=== PATIENT | male | born 1950 | race Caucasian/White ===

== ENCOUNTER 2019-10-31 07:13 | Emergency (ER) | payer MEDICARE ==
[~2019-10-31] VITALS: Ht 185.4 cm; Wt 102.3 kg
[2019-10-31 07:51] LABS: BASOPHILS % (AUTO) 0.9 % (0-1); EOSINOPHILS # (AUTO) 0.1 X10'3 (0-0.9); EOSINOPHILS % (AUTO) 2.6 % (0-6); HEMATOCRIT 42.3 % (42.0-52.0); HEMOGLOBIN 14.2 g/dl (14.0-17.9); LYMPHOCYTES # (AUTO) 1.3 X10'3 (1.1-4.8); LYMPHOCYTES % (AUTO) 24.1 % (21-51); MEAN CORPUSCULAR HEMOGLOBIN 30.9 PG (27.0-31.0); MEAN CORPUSCULAR HGB CONC 33.6 g/dL (33.0-36.5); MEAN PLATELET VOLUME 8.2 FL (7.4-10.4); MONOCYTES # (AUTO) 0.5 X10'3 (0-0.9); MONOCYTES % (AUTO) 8.4 % (2-12); NEUTROPHILS # (AUTO) 3.4 X10'3 (1.8-7.7); PLATELET COUNT 128 X10'3 (140-440); RED BLOOD COUNT 4.59 X10'6 (4.70-6.10); WHITE BLOOD COUNT 5.4 X10'3 (4.5-11.0)
[2019-10-31] MEDS ORDERED: metoclopramide 5 mg/ml inj IV ONE (07:55)
[2019-10-31 08:06] LABS: ALANINE AMINOTRANSFERASE 59 U/L (12-78); ALBUMIN 3.5 G/DL (3.4-5.0); ALKALINE PHOSPHATASE 110 IU/L (46-116); ANION GAP 6 (8-16); ASPARTATE AMINO TRANSFERASE 23 U/L (10-37); BILIRUBIN,TOTAL 0.4 MG/DL (0.1-1.0); BLOOD UREA NITROGEN 16 MG/DL (7-18); BUN/CREATININE RATIO 13.7 (5.4-32.0); CALCIUM 8.9 MG/DL (8.5-10.1); CHLORIDE 108 MMOL/L (99-107); CREATININE 1.17 MG/DL (0.60-1.10); GLUCOSE 140 MG/DL (70-104); POTASSIUM 3.9 MMOL/L (3.5-5.1); SODIUM 141 MMOL/L (135-145); TOTAL CARBON DIOXIDE 27.1 MMOL/L (24-32); TOTAL PROTEIN 6.9 G/DL (6.4-8.2); eGFR 62 ML/MIN
[2019-10-31] MEDS ORDERED: AZIL1TAB2 (08:07)
[2019-10-31] MEDS ORDERED: AMLO5TAB10 (08:07)
[2019-10-31] MEDS ORDERED: ATOR40TA PO (08:07)
[2019-10-31] MEDS ORDERED: CARV-50 PO (08:07)
[2019-10-31] MEDS ORDERED: ASPI-1265 PO (08:07)
[2019-10-31] MEDS ORDERED: MECL-111 PO (09:07)
[2019-10-31 09:26] VITALS: BP 151/79
== END 2019-10-31 09:27 | disposition home or self-care (01) ==
LOC: ER 07:13
DX: H81.10 Benign paroxysmal vertigo, unspecified ear (principal); I25.10 Atherosclerotic heart disease of native coronary artery without angina pectoris; I25.2 Old myocardial infarction; Z95.5 Presence of coronary angioplasty implant and graft; Z98.890 Other specified postprocedural states; Z79.82 Long term (current) use of aspirin; Z79.899 Other long term (current) drug therapy
CPT/HCPCS: 36415; 70450; 71045; 80053; 84484; 85025; 93005; 96374; 99284; J2765

== ENCOUNTER 2021-02-05 09:50 | Emergency (ER) | payer MEDICARE ==
[~2021-02-05] VITALS: Ht 185.4 cm; Wt 97.5 kg
[~2021-02-05 09:50] MED LIST: AMLO5TAB10; ASPI-1265 PO; ATOR40TA PO; AZIL1TAB2; CARV-50 PO; MECL-159 PO
[2021-02-05 10:30] LABS: CLARITY,URINE CLOUDY (Clear); COLOR,URINE RED (Yellow); PH,URINE 6.5 (4.8-8.0)
[2021-02-05 10:31] LABS: UA COLLECTION TYPE CLN CATCH MIDSTREAM
[2021-02-05 10:32] LABS: BASOPHILS % (AUTO) 0.5 % (0-1); EOSINOPHILS # (AUTO) 0.1 X10'3 (0-0.9); EOSINOPHILS % (AUTO) 1.9 % (0-6); HEMATOCRIT 44.2 % (42.0-52.0); HEMOGLOBIN 14.5 g/dl (14.0-17.9); LYMPHOCYTES # (AUTO) 1.3 X10'3 (1.1-4.8); LYMPHOCYTES % (AUTO) 17.8 % (21-51); MEAN CORPUSCULAR HEMOGLOBIN 30.5 PG (27.0-31.0); MEAN CORPUSCULAR HGB CONC 32.9 g/dL (33.0-36.5); MEAN CORPUSCULAR VOLUME 92.8 FL (78-98); MEAN PLATELET VOLUME 8.1 FL (7.4-10.4); MONOCYTES # (AUTO) 0.5 X10'3 (0-0.9); MONOCYTES % (AUTO) 6.8 % (2-12); NEUTROPHILS # (AUTO) 5.5 X10'3 (1.8-7.7); PLATELET COUNT 170 X10'3 (140-440); RED BLOOD COUNT 4.76 X10'6 (4.70-6.10); RED CELL DISTRIBUTION WIDTH 13.9 % (11.5-14.5); WHITE BLOOD COUNT 7.5 X10'3 (4.5-11.0)
[2021-02-05 10:48] LABS: RBC,URINE TNTC /HPF (0-2); WBC,URINE 30-50 /HPF (0-4)
[2021-02-05 10:49] LABS: ALANINE AMINOTRANSFERASE 27 U/L (12-78); ALBUMIN 3.4 G/DL (3.4-5.0); ALBUMIN/GLOBULIN RATIO 0.9 (1.1-1.5); ALKALINE PHOSPHATASE 101 IU/L (46-116); ANION GAP 9 (8-16); ASPARTATE AMINO TRANSFERASE 18 U/L (10-37); BILIRUBIN,TOTAL 0.6 MG/DL (0.1-1.0); BLOOD UREA NITROGEN 17 MG/DL (7-18); BUN/CREATININE RATIO 15.2 (5.4-32.0); CALCIUM 9.1 MG/DL (8.5-10.1); CHLORIDE 103 MMOL/L (99-107); CREATININE 1.12 MG/DL (0.60-1.10); GLUCOSE 121 MG/DL (70-104); LIPASE 152 U/L (73-393); POTASSIUM 3.9 MMOL/L (3.5-5.1); SODIUM 141 MMOL/L (135-145); TOTAL CARBON DIOXIDE 29.1 MMOL/L (24-32); TOTAL PROTEIN 7.3 G/DL (6.4-8.2); eGFR 64 ML/MIN
[2021-02-05 10:50] LABS: MUCUS STRANDS FEW /LPF (Neg); SQUAMOUS EPITHELIAL CELL,UR NONE SEEN /LPF (FEW)
[2021-02-05 10:51] LABS: BACTERIA,URINE 1+ /HPF (Neg)
[2021-02-05] MEDS ORDERED: iohexol 300mg/ml 100ml inj. ONE (13:31)
[2021-02-05] MEDS ORDERED: iohexol 350MG/ML 100ml bottle IV ONE (13:31)
[2021-02-05] MEDS ORDERED: CefTRIAXone 2gm/D5W 50ml BAG 50 ML IV ONE (14:20)
[2021-02-05] MEDS ORDERED: CEPH-585 PO (14:32)
[2021-02-05 15:46] VITALS: BP 138/86
[2021-02-05 16:12] LABS: OCCULT BLOOD STOOL NEGATIVE (Neg)
== END 2021-02-05 15:52 | disposition home or self-care (01) ==
LOC: ER 09:50
DX: N39.0 Urinary tract infection, site not specified (principal); R31.0 Gross hematuria; K62.5 Hemorrhage of anus and rectum; I25.10 Atherosclerotic heart disease of native coronary artery without angina pectoris; I25.2 Old myocardial infarction; Z98.890 Other specified postprocedural states; Z79.82 Long term (current) use of aspirin; Z79.2 Long term (current) use of antibiotics; Z79.899 Other long term (current) drug therapy
CPT/HCPCS: 36415; 74178; 80053; 81001; 82272; 83690; 85025; 87088; 96365; 99285; J0696; Q9967

== ENCOUNTER 2025-09-16 06:51 | Emergency (ER) | payer MEDICARE, OTHER ==
[~2025-09-16] VITALS: Ht 185.4 cm; Wt 89.9 kg
[~2025-09-16 06:51] MED LIST changes: -MECL-159 PO; +MECL-302 PO
[2025-09-16 06:52] VITALS: TEMP 97.9
--- NOTE | 2025-09-16 07:02 | Physician Documentation ---
History of Present Illness General Stated Complaint: BACK PAIN Time Seen by MD: 06:56 Primary Medical Doctor: tristan History of Present Illness Initial Comments This is a 74-year-old gentleman with a known history of CABG, extensive cardiac history, presents for evaluation of what he describes as a back pain centered between his shoulder blades radiating down his right arm. No obvious trigger provocation. Unable to elaborate on any palliating or aggravating factors. When I asked him to describe this pain and whether it feels sharp, dull, achy, ripping, tearing" he states all of the above ankle. He attempted to treat this pain with cold, heat, ibuprofen with the only marginal relief. He has never experienced this pain in the past and it is different from his cardiac pain. He smokes, about half a pack a day. He drinks, he does not do drugs. Medication Reconciliation Allergies: Coded Allergies: No Known Allergies (Unverified , 09/16/25) Scheduled Amlodipine Besylate (Amlodipine Besylate), HS, (Reported) Aspirin (Aspirin), 1 TAB.CHEW PO DAILY, (Reported) Atorvastatin Calcium* (Lipitor*), 1 TABLET PO DAILY, (Reported) Azilsartan Med/Chlorthalidone (Edarbyclor 40-25 mg Tablet), QAM, (Reported) Carvedilol* (Coreg*), 3.125 MG PO BID, (Reported) Meclizine HCl (Meclizine HCl), 1 TAB PO Q6H Past Medical History Past Medical History: Coronary Artery Disease, Myocardial Infarction Past Surgical History: angioplasty, orthopedic surgeries Drug Use: none Lives with: Spouse Lives In: Home Review of Systems ROS 10 point review of systems was performed and unless noted above in HPI is negative for acute process/complaint. Physical Exam Physical Exam Physical Exam GENERAL: Awake, alert, oriented, GCS 15, no apparent distress, uncomfortable appearing, answers questions, follows commands appropriately. Examined in triage, accompanied by PAWELENT: Atraumatic, normocephalic, pupils equal, extraocular muscles intact, sclerae anicteric, mucus membranes moist, oropharynx is clear, no stridor. NECK: supple, full active range of motion, trachea midline, no thyromegaly, no lymphadenopathy, no JVD. CARDIOVASCULAR: regular rate/rhythm, no murmurs/gallops/rubs, Pulses are 2+ in all extremities and symmetric. Capillary refill less than 2 seconds. PULMONARY: Nonlabored, good air movement ,no respiratory distress, speaking in full sentences, clear to auscultation bilaterally, no wheezing, no ronchi, no rales, no accessory muscle use. GASTROINTESTINAL: Soft, non-tender, non-distended, normal active bowel sounds, no organomegaly, no pulsatile masses, no CVA tenderness. NEUROLOGIC: Lucid with normal mental status. Normal facial symmetry. Moves all extremities symmetrically and with purpose. No truncal ataxia. Speech is fluid without evidence of dysarthria or aphasia, no focal deficits appreciated. MUSCULOSKELETAL: There is full range of motion of all extremities. There is no joint pain or joint swelling or joint erythema. There is no muscle pain or tenderness or swelling. EXTREMITIES: warm, well-perfused, no cyanosis, no clubbing, no edema, no acute deformities. Skin: warm, dry, no rashes or lesions, no jaundice, no petechiae orpurpura. No ecchymosis. PSYCHIATRIC: Normal affect, normal insight, normal concentration. Focused exam: [] Progress Results/Orders Results/Orders Orders - ALEXANDRA DONOVAN DO Cta Chest Abdomen Pelvis (09/16/25 08:27) Chest,Single View (09/16/25 06:56) Monitor (09/16/25 06:56) Saline Lock (09/16/25 06:56) Completed Orders - ALEXANDRA DONOVAN DO Cta Chest Abdomen Pelvis (09/16/25 08:27) Electrocardiogram (09/16/25 06:56) Cbc/Diff (09/16/25 06:56) CK (09/16/25 06:56) D-Dimer (09/16/25 06:56) Lipase (09/16/25 06:56) LDH (09/16/25 06:56) Urinalysis, Cult If Indicated (09/16/25 06:56) Chest,Single View (09/16/25 06:56) PBNP (09/16/25 06:56) MG (09/16/25 06:56) CMP (09/16/25 06:56) Hs Troponin I W Calculations (09/16/25 06:56) Hs Troponin I W Calculations (09/16/25 08:56) Ondansetron Inj. (Zofran 4mg/2ml Vial) (09/16/25 07:00) Morphine 4mg/Ml Inj. (Morphine Inj.) (09/16/25 07:00) Morphine 2mg/Ml Inj. (Morphine Inj.) (09/16/25 07:10) Iohexol 350mg/Ml 100ml (Omnipaque 350mg/ (09/16/25 08:04) Medications Received in ER Medications (Trade) Dose Ordered Sig/Slade Route PRN Reason Start Time Stop Time Status Last Admin Dose Admin (Zofran 4mg/2ml vial) 4 mg ONCE ONCE IV 09/16/25 07:00 09/16/25 07:08 DC 09/16/25 07:22 4 MG (morphine inj.) 4 mg ONCE ONCE IV 09/16/25 07:10 09/16/25 07:11 DC 09/16/25 07:23 4 MG Vital Signs 09/16/25 09/16/25 09/16/25 09/16/25 06:52 07:15 07:23 07:47 Temp 97.9 Pulse 82 63 Resp 20 18 18 17 B/P (MAP) 138/88 147/86 (106) Pulse Ox 98 94 O2 Flow Rate 0 0 09/16/25 09/16/25 07:49 08:56 Pulse 61 Resp 17 12 B/P (MAP) 153/77 (102) Pulse Ox 95 O2 Flow Rate 0 Laboratory Tests Test 09/16/25 07:19 09/16/25 08:48 09/16/25 09:04 White Blood Count 5.3 Red Blood Count 4.75 Hemoglobin 14.6 Hematocrit 43.7 Mean Corpuscular Volume 92.1 Mean Corpuscular Hemoglobin 30.8 Mean Corpuscular Hemoglobin Concent 33.5 Red Cell Distribution Width 14.4 Platelet Count 142 Mean Platelet Volume 7.9 Neutrophils (%) (Auto) 73.3 Lymphocytes (%) (Auto) 13.6 L Monocytes (%) (Auto) 8.8 Eosinophils (%) (Auto) 3.9 Basophils (%) (Auto) 0.4 Neutrophils # (Auto) 3.9 Lymphocytes # (Auto) 0.7 L Monocytes # (Auto) 0.5 Eosinophils # (Auto) 0.2 Basophils # (Auto) 0.0 CBC Comment D-Dimer 1.02 H D-Dimer Comment Sodium Level 138 Potassium Level 4.1 Chloride Level 105 Carbon Dioxide Level 29.1 Anion Gap 4 L Blood Urea Nitrogen 16 Creatinine 1.02 Estimated GFR/1.73 m2 71 BUN/Creatinine Ratio 15.7 Glucose Level 131 H Calcium Level 8.6 Magnesium Level 1.8 Total Bilirubin 0.7 Aspartate Amino Transf (AST/SGOT) 14 Alanine Aminotransferase (ALT/SGPT) 20 Alkaline Phosphatase 95 Lactate Dehydrogenase 115 Total Creatine Kinase 40 Troponin I High Sensitivity 7 7 Pro-B-Type Natriuretic Peptide 113 Total Protein 6.9 Albumin 3.2 L Globulin 3.7 Albumin/Globulin Ratio 0.9 L Lipase 46 Chemistry Comments Urine Specimen Description Cln catch midstream Urine Color Yellow Urine Clarity Clear Urine pH 6.5 Urine Specific [place] <=1.005 Urine Protein Negative Urine Glucose (UA) Negative Urine Ketones Negative Urine Occult Blood Negative Urine Nitrite Negative Urine Bilirubin Negative Urine Urobilinogen 0.2 Urine Leukocyte Esterase Negative Urine Culture Indicated Not ind Volume Urine Centrifuged 10 ml Urine Comment Troponin I High Sens Percent Delta 0 Troponin I Hi Sens Absolute Change 0 EKG/XRAY/CT/US/VASC/MRI EKG : Additional Comment EKG was obtained and interpreted by myself shows sinus rhythm of 78, normal IL interval, narrow QRS, no QT prolongation, normal axis, no STEMI Medical Decision Making Additional information obtaine: old records, family Findings Facility Status: ED [facility], [facility] process The plan was discussed with the patient, who demonstrates clear understanding of the plan and is in agreement with the plan unless otherwise noted in the chart. All questions have been answered, all concerns were addressed unless otherwise documented. I was available throughout their ED stay for frequent reassessment and que stions. Differential Diagnoses (considered and possible or likely): [Differential thierno gnosis considered includes chest wall pain, pleurisy, pneumonia, pulmonary embolus, GERD, esophagitis, gastritis, anxiety, stress reaction, costochondritis, acute coronary syndrome, aortic dissection, pericarditis, myocarditis, thoracic spine fracture or subluxation, kidney stones, acute cholecystitis, or pneumothorax.] ??Differential Diagnoses (considered and unlikely, not requiring evaluation currently): [See above] MDM Data Please see HPI for the following: Independent Historians and external Records Review. Historian: [Patient] Independent Historians: ?[, record review] Medication Management: [Reviewed medication list] Social History and determinants: [Reviewed] Please see the body of the note for the following: Any independent interpretations of ECG, imaging studies. All vitals signs/haemodynamics, ordered tests were independently reviewed and interpreted by myself. Nursing triage complaint and vitals reviewed, additional nursing notes were reviewed as available and I agree unless otherwise noted or documented in contradiction in the chart Vital Signs: Independently reviewed Labs: Independently interpreted Imaging: Independently interpreted Old Medical Records: Independently reviewed, see HPI for relevant summary and information Pulse Oximetry: [95%] interpreted as [normal on room air] by me [Aquaculture Program Director: [Regular Rate, Regular rhythm, no ectopy, NSR] reviewed and interpreted by me] Additionally notably showing: [Hemodynamics reviewed. The patient does not febrile, not tachycardic, no evidence of hypotension respiratory distress. CBC is normal. No leukocytosis, no anemia, normal platelets. Metabolic panel is essentially unremarkable. Normal renal function. Troponin is negative twice. LDH is normal. CK is normal. UA is nondiagnostic for UTI, no evidence of kidney stones. Coagulation panel shows elevated D-dimer. CT angiography of the chest, abdomen and pelvis of the obtained to evaluate for potential dissection. He has rather small aortic aneurysm and significant classification of aortic vessels. But there was no acute disease. No PE. No dissection. No pneumonia. ] Tests considered but not ordered include: [Cardiac workup has been considerably the patient is followed by Dr. Wai Siddiqi and had received a workup less than a year ago] Social Determinants of Health Impact: Patient was evaluated in [facility], [facility] [place] healthcare due to below par ratio of patient to medical providers. [] Comorbid Conditions Impacting Present Evaluation and Care/Treatment: [Extensive cardiac history] Management Discussions with other Healthcare Providers: [None] Treatment and Disposition Medication Management (Given or considered): [Pain management]. See EMR for details Consideration for Hospitalization/Escalation/Deescalation of Care: Admission for observation has been considered, [however the patient is able to tolerate p.o., their symptoms are controlled, they are able to rely on oral medications, and their chief complaint/diagnosis can be managed on outpatient basis.] ?ED Course:?[Admission for observation of cardiac workup has been considered, however the patient declines. He states that he had a recent cardiac workup] ?Shared decision making:?[Patient is hemodynamically stable for discharge home with follow with their primary care provider. [ ] Specific and cautious return precautions provided and discussed with full understanding. Any incidental findings were also discussed and follow up recommendations given. [] All questions answered. Patient/family were able to verbalize back return precautions. Patient/family agree to plan. Copies of imaging and laboratory studies were provided.] Code status:?FULL Please see the full Electronic Medical Record for full details of nursing documentation, medications list, other records of complete past medical history and conditions, vital signs, laboratory studies, and any radiologic study interpretations by radiologists. Portions of this note were completed using [email or web address] dictation software and as a result there may exist minor errors in spelling. I have reviewed elements of past family and social history and agree as included in note. Differential Diagnosis See body of the main note for differential diagnosis Departure Disposition: HOME / SELF CARE / HOMELESS Impression: Primary Impression: Acute thoracic back pain Condition: Improved Discharge Instructions: Acute Back Pain, Adult Additional Instructions: Unfortunately, there is no clear explanation for your back pain today. We have evaluated you for multiple life-threatening causes and there is no evidence of heart damage, no evidence of heart attack, no evidence of aortic dissection or blood clot in the lungs. You may need to follow-up with the primary care provider and discuss need for MRI of cervical and thoracic spine. Additionally, your CT angiography today showed incidental finding of fairly severe intra-abdominal atherosclerosis. Discussed with the primary care provider potential referral to a vascular surgeon. Referrals: NO PRIMARY CARE PROVIDER (PCP) Prescriptions Cyclobenzaprine HCl (Cyclobenzaprine HCl) 5 Mg Tablet 1 TAB PO TID PRN PRN for muscle spasms for 10 Days, #30 TAB 0 Refills Prov: ALEXANDRA DONOVAN DO 09/16/25 Naloxone HCl (Narcan) 4 Mg/Actuation [place] 1 SPRAYS BOTHNARES ONCE for 14 Days, #1 EA 0 Refills Did not use a routinely. Only use in case of respiratory depression/opioid overdose. Prov: ALEXANDRA DONOVAN DO 09/16/25 ONDANSETRON ODT 4mg tablet (ONDANSETRON ODT) 4 Mg Tab.rapdis 1 TAB PO Q6H PRN PRN for nausea/vomiting for 4 Days, #16 TAB 0 Refills Prov: ALEXANDRA DONOVAN DO 09/16/25 Oxycodone HCl/Acetaminophen (Percocet 5-325 mg Tablet) 5 Mg-325 Mg Tablet 1 TAB PO QID PRN PRN for pain for 7 Days, #28 TAB 0 Refills Prov: ALEXANDRA DONOVAN DO 09/16/25 Education Educated: Patient, Family Educated regarding: diagnosis, treatment, prognosis, need for follow up Signature Scribe Signature: No scribe Attestation: Date: Sep 16, 2025 Time: 07:02 This note accurately reflects clinical decisions, work performed by myself, DO ZION Landeros NICHOLAS M DO Sep 16, 2025 07:02
--- NOTE | 2025-09-16 07:07 | ELECTROCARDIOGRAPH REPORT ---
[facility] Test Date: 2025-09-16 Test Time: 07:04:22 [facility] Department[facility]- Patient ID: [facility]-[id number] Room: Gender: M Hand Potter: : 1950 Requested By: ALEXANDRA DONOVAN Order Number: [id number] Reading MD: Dr. MATEUS Garcia Measurements Intervals [place] Rate: 78 P: 79 FL: 188 QRS: 88 QRSD: 104 T: 68 QT: 374 QTc: 426 Interpretive Statements Sinus rhythm Borderline right axis deviation Electronically Signed On 09-16-2025 16:53:[address] MATEUS Garcia Please click the below link to view image of tracing.
[2025-09-16] MEDS: morphine 4 MG/ML inj SYRINge IV ONE (07:21)
[2025-09-16] MEDS: ondansetron/PF 4mg/2ml inj IV ONE (07:22)
--- NOTE | 2025-09-16 07:36 | RADIOLOGY REPORT ---
CHEST RADIOGRAPH Indication: Chest pain Technique: Single frontal view of the chest was obtained Comparison: None FINDINGS: Lines and Tubes: None Lungs: No focal consolidation. Pleura: No effusion. No pneumothorax. Cardiomediastinal contours: Unremarkable Bones: No acute osseous abnormality. IMPRESSION: No acute cardiopulmonary disease.
[2025-09-16 07:40] LABS: MEAN PLATELET VOLUME 7.9 FL (7.4-10.4); RED CELL DISTRIBUTION WIDTH 14.4 % (11.5-14.5)
[2025-09-16 07:50] LABS: CREATININE 1.02 MG/DL (0.60-1.10); TOTAL CARBON DIOXIDE 29.1 MMOL/L (24-32); eCRCL 70 ML/MIN; eGFR 71 ML/MIN
[2025-09-16 07:57] LABS: LACTATE DEHYDROGENASE 115 U/L (85-227); PRO BRAIN NATRIURETIC PEPTIDE 113 PG/ML (0-450)
--- NOTE | 2025-09-16 09:00 | RADIOLOGY REPORT ---
CLINICAL HISTORY: Chest pain/midline back pain, severe, migrating down from between shoulder TECHNIQUE: CTA of the chest, abdomen, and pelvis was performed with IV contrast. 22 Coronal and sagittal reformatted images were performed for better depiction of the anatomy. This exam was performed according to our departmental dose optimization program. Up-to-date CT equipment and radiation dose reduction techniques are utilized as appropriate. CTDI 22 DLP 1661 COMPARISON: DI CHEST,SINGLE VIEW on DOS: 09/16/25, CT ABDOMEN PELVIS on DOS: 02/05/21 FINDINGS: CHEST: Opacification of the pulmonary arterial tree demonstrates no evidence for acute pulmonary embolism. The thoracic aorta is normal in course and caliber. There are mild atherosclerotic calcifications. There is no evidence for aortic dissection. The heart is normal in size. No pericardial effusion is seen. There are 3-vessel coronary artery calcifications. No enlarged mediastinal, hilar, or axillary lymph node is present. The central airways are patent. There is no bronchiectasis. There is severe centrilobular emphysema in both lungs. There are no suspicious pulmonary nodule or area of consolidation. There is no pleural effusion present. ABDOMEN/PELVIS: The pancreas, adrenal glands, gallbladder, liver, and kidneys are unremarkable. The prostate gland is enlarged, measuring 6 cm. There has been interval prostate treatment. There is a similar-appearing 11 mm enhancing splenic lesion, favor hemangioma. The abdominal aorta is normal in course and caliber. There are severe atherosclerotic changes with mixed density plaque within the abdominal aorta. The right common iliac artery aneurysm measuring 2.6 cm with severe plaque including significant soft tissue plaque. There is no evidence for aortic dissection. The celiac, superior mesenteric, and bilateral renal arteries are patent with no significant stenosis. The LEW is patent with atherosclerotic change at its origin. There is no free intraperitoneal air or fluid. There is no enlarged abdominal or pelvic lymph node. There is no bowel wall thickening or dilatation. The appendix is normal. The bladder is grossly unremarkable. [reproductive organs] BONES: No acute osseous abnormality is evident. IMPRESSION: No evidence for acute pulmonary embolism. No aortic dissection. No pneumonia. Severe centrilobular emphysema. 3-vessel coronary artery calcifications. Severe atherosclerotic changes of the abdominal aorta and right common iliac artery including significant soft tissue plaque. 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 Moderate prostatomegaly.
[2025-09-16 09:08] LABS: LEUKOCYTE ESTERASE ,URINE NEGATIVE (Neg); NITRITES, URINE NEGATIVE (Neg); OCCULT BLOOD,URINE NEGATIVE (Neg)
[2025-09-16 09:26] LABS: UA COLLECTION TYPE CLN CATCH MIDSTREAM
[2025-09-16] MEDS ORDERED: NALO4SPR BOTHNARES (09:56)
[2025-09-16] MEDS ORDERED: CYCL-920 PO (09:56)
[2025-09-16] MEDS ORDERED: ONDA-243 PO (09:56)
[2025-09-16] MEDS ORDERED: OXYC-145 PO (09:56)
[2025-09-16 09:58] VITALS: BP 147/78; PULSE 65; RESP 13; O2SAT 95
== END 2025-09-16 10:11 | disposition home or self-care (01) ==
LOC: ER 06:51
DX: M54.9 Dorsalgia, unspecified (principal); M54.6 Pain in thoracic spine; I25.10 Atherosclerotic heart disease of native coronary artery without angina pectoris; I25.2 Old myocardial infarction; F17.210 Nicotine dependence, cigarettes, uncomplicated; Z95.1 Presence of aortocoronary bypass graft; Z79.82 Long term (current) use of aspirin; Z79.899 Other long term (current) drug therapy; Z98.890 Other specified postprocedural states
CPT/HCPCS: 36415; 71045; 71275; 74174; 80053; 81003; 82550; 83615; 83690; 83735; 83880; 84484; 85025; 85379; 93005; 96374; 96375; 99285; J2270; J2405; Q9967